=== PATIENT | female | born 1940 | race Caucasian/White ===

== ENCOUNTER → 2019-06-07 | Outpatient (CLI) | payer MEDICARE ==
--- NOTE | 2019-06-07 10:23 | PCVCIMAG ---
EXAM: AORTOILIAC DUPLEX INDICATION: Palpable abdominal fullness. FINDINGS: AORTA: Suprarenal aorta measures maximum diameter of 2.9 cm. There is not a fusiform infrarenal aortic aneurysm. The infrarenal aorta measures maximum diameter of 2.1 cm. No aortic stenosis. RIGHT COMMON ILIAC ARTERY: Maximum diameter is 1.7 cm. No significant stenosis. RIGHT EXTERNAL ILIAC ARTERY: No significant stenosis. LEFT COMMON ILIAC ARTERY: Maximum diameter is 1.7 cm. No significant stenosis. LEFT EXTERNAL ILIAC ARTERY: No significant stenosis. IMPRESSION: No abdominal aortic aneurysm. No aortoiliac stenosis seen. LOC:[id number]
--- NOTE | 2019-06-07 16:59 | PCVCIMAG ---
APPROVED REPORT Study performed: 06/07/2019 10:20:07 EXAM: Comprehensive 2D, Doppler, and color-flow Echocardiogram Patient Location: Echo lab Status: routine BSA: 1.79 HR: 64 bpmBP: 130/80 mmHg Rhythm: NSR Other Information Study Quality: Good Indications Murmur 2D Dimensions IVSd: 13.28 (7-11mm)LVOT Diam: 20.31 (18-24mm) LVDd: 44.68 mm PWd: 10.74 (7-11mm)Ascending Ao: 36.99 (22-36mm) LVDs: 33.81 (25-40mm) Left Atrium: 38.35 (27-40mm) Aortic Root: 27.93 mm LV Single Plane 4CH: 53.25 % LV Single Plane 2CH: 66.77 % Biplane EF: 58.7 % Volumes Left Atrial Volume (Systole) Single Plane 4CH: 54.02 mLSingle Plane 2CH: 50.53 mL LA ESV Index: 29.00 mL/m2 Aortic Valve AoV Peak Brayan.: 2.71 m/s AO Peak Gr.: 29.48 mmHgLVOT Max P.08 mmHg AO Mean Gr.: 16.86 mmHgLVOT Mean P.87 mmHg AO V2 Mean: 1.99 m/sLVOT Max V: 1.13 m/s AO V2 VTI: 68.07 cmLVOT Mean V: 0.81 m/s JOEY (VTI): 1.26 [id number] V1 VTI: 26.58 cm JOEY Vmax: 1.35 cm2 AI Vmax: 5.16 m/sSV (LVOT): 86.10 mL AI [place]: 3.80 m/s2 AI PHT: 392.98 ms Mitral Valve E/A Ratio: 0.5 MV Decel. Time: 203.68 ms MV E Max Brayan.: 0.56 m/s MV A Brayan.: 1.02 m/s IVRT: 162.63 ms TDI E/Lateral E': 8.00E/Medial E': 9.33 Medial E' Brayan.: 0.06 m/s Lateral E' Brayan.: 0.07 m/s Pulmonary Valve PV Peak Gr.: 2.80 mmHg Pulmonary Vein P Vein S: 0.64 m/sP Vein A: 0.34 m/s P Vein D: 0.33 m/sP Vein A Dur.: 96.9 msec P Vein S/D Ratio: 1.94 Tricuspid Valve TR Peak Brayan.: 2.12 m/s TR Peak Gr.: 17.92 mmHg Left Ventricle The left ventricle is normal size. There is normal LV segmental wall motion. Borderline concentric left ventricular hypertrophy. Left ventricular systolic function is normal. The left ventricular ejection fraction is within the normal range. LVEF is 55-60%. The left ventricular diastolic function is normal. Right Ventricle The right ventricle is normal size. The right ventricular systolic function is normal. Atria The left atrium size is normal. The right atrium size is normal. Aortic Valve Aortic valve leaflets are moderately thickened. Mild to moderate aortic regurgitation. Moderate aortic stenosis. Peak gradient 30mmHg. Mean gradient 17mmHg. Calculated aortic valve 1.3cm2 Mitral Valve The mitral valve is normal in structure. Mild mitral regurgitation. No evidence of mitral valve stenosis. Tricuspid Valve The tricuspid valve is normal in structure. Trace tricuspid regurgitation. Pulmonary artery pressure is 25mmHg. Pulmonic Valve The pulmonary valve is normal in structure. Mild pulmonic regurgitation. Great Vessels The aortic root is normal in size. IVC is normal in size and collapses >50% with inspiration. Pericardium There is no pericardial effusion. <Conclusion> The left ventricle is normal size. Borderline concentric left ventricular hypertrophy. LVEF is 55-60%. The right ventricle is normal size. The left atrium size is normal. Aortic valve leaflets are moderately thickened. Mild to moderate aortic regurgitation. Moderate aortic stenosis. Peak gradient 30mmHg. Mean gradient 17mmHg. Calculated aortic valve 1.3cm2 Mild mitral regurgitation. Trace tricuspid regurgitation. Pulmonary artery pressure is 25mmHg. The aortic root is normal in size. There is no pericardial effusion.
== END | disposition home or self-care (01) ==
LOC: PCVCIMAG 09:32
PROVIDERS: ATTEND Internal Medicine Cardiovascular Disease
DX: I08.8 Other rheumatic multiple valve diseases (principal); R07.9 Chest pain, unspecified; R06.02 Shortness of breath; R09.89 Other specified symptoms and signs involving the circulatory and respiratory systems; R01.1 Cardiac murmur, unspecified; R94.31 Abnormal electrocardiogram [ECG] [EKG]; E78.00 Pure hypercholesterolemia, unspecified; Z82.49 Family history of ischemic heart disease and other diseases of the circulatory system; Z87.891 Personal history of nicotine dependence; Z79.82 Long term (current) use of aspirin; Z79.899 Other long term (current) drug therapy
CPT/HCPCS: 36415; 80061; 93005; 93306; 93978; G0463

== ENCOUNTER → 2019-06-27 | Outpatient (CLI) | payer MEDICARE ==
--- NOTE | 2019-06-27 11:41 | PCVCIMAG ---
EXAM: BILATERAL CAROTID DUPLEX INDICATION: Carotid Occlusive Disease. FINDINGS: Doppler Measurements (centimeters per second): RIGHT: Peak CCA-59, Peak ECA-63, Diastolic ICA-24, Peak ICA-69, ICA/CCA Ratio-1.2. LEFT: Peak CCA-52, Peak ECA-43, Diastolic ICA-26, Peak ICA-59, ICA/CCA Ratio-1.2. RIGHT CAROTID: The carotid bulb has minimal plaque. The proximal internal carotid artery shows no significant stenosis. The common carotid artery shows no significant stenosis. The external carotid artery shows no significant stenosis. LEFT CAROTID: The carotid bulb has minimal plaque. The proximal internal carotid artery shows no significant stenosis. The common carotid artery shows no significant stenosis. The external carotid artery shows no significant stenosis. Antegrade flow in both vertebral arteries. IMPRESSION: No significant stenosis of the right internal carotid artery with minimal plaque. No significant stenosis of the left internal carotid artery with minimal plaque. LOC:[place] [id number]
--- NOTE | 2019-06-27 12:02 | PCVCIMAG ---
APPROVED REPORT Study performed: 06/27/2019 11:14:04 Exam: Dobutamine Stress Echo Indication: dyspnea, abn ekg, murmur Patient Location: Echo lab Stress Nurse: Gunjan Miller RN Status: routine Ht: 5 ft 3 in HR: 71 bpm BP: 122/ mmHg Procedure The patient underwent an Exercise Stress Test using the Anthony Protocol. Blood pressure, heart rate, and EKG were monitored. An Echocardiogram was performed by instrument and controls technician in four stages in quad fashion. At peak stress, four selected images were obtained and placed side by side with resting images for comparison. Stress Test Details Stress Test: Exercise stress testing was performed using a Anthony protocol. HR Resting HR: 71 bpmMax Heart Rate (APMHR): 142 bpm Max HR Achieved: 142 bpmTarget HR (85% APMHR): 120 bpm % of APMHR: 100 Recovery HR: 91 bpm HR response to stress: Normal HR response to stress BP Resting BP: 122/84 mmHg Max BP: 174/82 mmHg Recovery BP: 148/82 mmHg BP response to stress: Normal blood pressure response to stress. ECG Resting ECG: Sinus Rhythm Stress ECG: Sinus Rhythm ST Change: Normal Arrhythmia: PACs and PVCs Recovery ECG: Sinus Rhythm Recovery ST Change: Normal Recovery Arrhythmia: PACs and PVCs that resolved with recovery Clinical Reason for Termination: Maximal effort, Dyspnea, leg fatigue Stress Symptoms: Dyspnea, leg fatigue Exercise duration: 4 min 27 sec Highest Stage Achieved: Stage 2: 2.5 mph at 12% grade. Exercise capacity: 7 METs Overall Exercise Capacity for Age: Poor Scale: Active Angina Score: None Pre-Stress Echo The resting Echocardiogram showed normal left ventricular contractility with an estimated Ejection Fraction of about 50-55%. Normal wall motion in all segments on baseline images. Post-Stress Echo The stress Echocardiogram showed normal left ventricular contractility with an estimated Ejection Fraction of about 60%. Normal augmentation of wall motion in all segments on post stress images. Clinical No clinical or ECG evidence for ischemia. Conclusion Clinical Response: Non-ischemic Exercise Capacity: Below Average Stress ECG Response: Non-ischemic Stress Echo Images: Non-ischemic The left ventricle is normal in size and wall thickness in both the rest and stress images. Other Information Study Quality: Adequate <Conclusion> The left ventricle is normal in size and wall thickness in both the rest and stress images.
== END | disposition home or self-care (01) ==
LOC: PCVCIMAG 10:16
PROVIDERS: ATTEND Internal Medicine Cardiovascular Disease
DX: R09.89 Other specified symptoms and signs involving the circulatory and respiratory systems (principal)
CPT/HCPCS: 93325; 93351; 93880